=== PATIENT | female | born 1935 | race Caucasian/White ===

== ENCOUNTER 2022-01-25 18:59 | Inpatient (IN) | payer MEDICARE ==
--- NOTE | 2022-01-25 19:11 | ED ---
General Adult HPI - General Chief complaint: Fall Stated complaint: Rt shoulder pain Source: patient Mode of arrival: EMS Limitations: altered mental status - History of Present Illness Initial comments: Dictation was produced using [employer] dictation software. please excuse any grammatical, word or spelling errors. Chief Complaint: 86-year-old female presents to the emergency department for fall and right upper extremity injury History of Present Illness: Patient is an 78-year-old female presents via EMS. Patient had an unwitnessed fall at home. Patient was allegedly on the ground for approximately 30 minutes at most. Patient has history of dementia. She is alert and oriented 1 out of 4 at baseline. Patient has no known history of anticoagulation medication usage. According to EMS who received report from family patient is mentally at baseline. Patient complains of right upper extremity injury. She has pain at the right shoulder. She is placed in a sling by EMS. Patient denies any numbness and paresthesias to the arms or legs. She denies any chest pain or pelvis pain. The ROS documented in this emergency department record has been reviewed and confirmed by me. Those systems with pertinent positive or negative responses have been documented in the HPI. All other systems are other negative and/or noncontributory. PHYSICAL EXAM: General Impression: Alert and oriented x1/4, not in acute distress HEENT: Normocephalic atraumatic, extra-ocular movements intact, pupils equal and reactive to light bilaterally, mucous membranes moist. Cardiovascular: Heart regular rate and rhythm Chest: Able to complete full sentences, no retractions, no tachypnea Abdomen: abdomen soft, non-tender, non-distended, no organomegaly Musculoskeletal: Pulses present and equal in all extremities, no peripheral edema Right upper extremity: Gross deformity at the proximal upper extremity suspicious for a proximal humerus fracture Motor: no focal deficits noted Neurological: CN II-XII grossly intact, no focal motor or sensory deficits noted Skin: Intact with no visualized rashes Psych: Normal affect and mood ED course: 86-year-old female presents to the emergency department after fall. Follows unwitnessed. Patient has history of dementia and unable to provide detailed history of present illness. Shoulder x-ray shows right proximal humerus fracture superimposed on diffuse osseous demineralization which limits evaluation for nondisplaced Colles fracture. Patient placed in a right upper extremity coapt splint. Computed tomography scan of the head and C-spine shows no acute processes. Family at the bedside reports that patient lives in assisted living facility. More history was obtained from patient's daughter and granddaughter at the bedside. Patient usually ambulates with a cane that she operates with a right upper extremity. Family is not confident that patient would be able to tolerate being at home and follow up with the event her degree of debility and no good social structure at home. Case discussed with home either is of orthopedic surgery request the patient be admitted to medicine. Spoke with Mita Stein who is willing to accept patient's [facility] hospitalist group with orthopedic roy tommy on consult. EKG interpretation: Ventricular rate 82, sinus rhythm,. Interval 89, QS 94, QTC 409. No PA prolongation, no QTC prolongation, no ST or T-wave changes noted. No old EKG for comparison. Overall, this EKG is unremarkable for acute processes - Related Data Allergies Allergy/AdvReac Type Severity Reaction Status Date / Time No Known Allergies Allergy Verified 01/25/22 19:05 Review of Systems ROS Statement: Those systems with pertinent positive or pertinent negative responses have been documented in the HPI. ROS Other: All systems not noted in ROS Statement are negative. Past Medical History Past Medical History: Dementia History of Any Multi-Drug Resistant Organisms: None Reported Past Surgical History: Unable to Obtain Past Psychological History: No Psychological Hx Reported Smoking Status: Unknown if ever smoked Past Alcohol Use History: None Reported Past Drug Use History: None Reported General Exam Limitations: altered mental status Course Vital Signs 01/25/22 01/25/22 19:02 20:41 Temperature 98.3 F Pulse Rate 77 83 Respiratory 16 18 Rate Blood Pressure 146/73 169/84 O2 Sat by Pulse 97 96 Oximetry Procedures - Orthopedic Splinting/Casting Injury #1 Side: right Upper Extremity Injury Location: shoulder Upper Extremity Immobilizer: sling/shoulder immobilizer, synthetic pre-padded splint (coaptation splint) Medical Decision Making - Lab Data Result diagrams: 01/25/22 20:08 01/25/22 20:08 Lab Results 01/25/22 01/25/22 Range/Units 20:08 20:08 WBC 6.5 (3.8-10.6) k/uL RBC 5.32 (3.80-5.40) m/uL Hgb 13.4 (11.4-16.0) gm/dL Hct 43.2 (34.0-46.0) % MCV 81.2 (80.0-100.0) fL MCH 25.2 (25.0-35.0) pg MCHC 31.0 (31.0-37.0) g/dL RDW 14.8 (11.5-15.5) % Plt Count 224 (150-450) k/uL MPV 7.4 Neutrophils % 78 % Lymphocytes % 15 % Monocytes % 4 % Eosinophils % 1 % Basophils % 0 % Neutrophils # 5.1 (1.3-7.7) k/uL Lymphocytes # 1.0 (1.0-4.8) k/uL Monocytes # 0.3 (0-1.0) k/uL Eosinophils # 0.1 (0-0.7) k/uL Basophils # 0.0 (0-0.2) k/uL Hypochromasia Slight Sodium 135 L (137-145) mmol/L Potassium 4.7 (3.5-5.1) mmol/L Chloride 100 (98-107) mmol/L Carbon Dioxide 28 (22-30) mmol/L Anion Gap 7 mmol/L BUN 16 (7-17) mg/dL Creatinine 0.98 (0.52-1.04) mg/dL Est GFR (CKD-EPI)AfAm 60 (>60 ml/min/1.73 sqM) Est GFR (CKD-EPI)NonAf 52 (>60 ml/min/1.73 sqM) Glucose 287 H (74-99) mg/dL Calcium 9.4 (8.4-10.2) mg/dL Disposition Clinical Impression: Humeral fracture, Debility Disposition: ADMITTED IP TO THIS [facility] Condition: Fair Referrals: None,Stated [Primary Care Provider] - 1-2 days Decision Time: 20:43
[2022-01-25] MEDS ORDERED: MORPHINE SULFATE 4 MG/ML SYRINGE IV STA ×2 (19:47→20:36)
--- NOTE | 2022-01-25 19:51 | XR ---
EXAMINATION TYPE: XR humerus RT, XR shoulder complete RT DATE OF EXAM: 01/25/2022 7:30 PM INDICATION: Patient age:Female; 86 years old; Reason for study: fall; COMPARISON: None TECHNIQUE: The right humerus was examined in AP, internally rotated and axillary projections. Right shoulder was examined in AP lateral oblique and scapular Y FINDINGS: Diffuse osseous demineralization with deformity of the right femoral head. No definitive ot her fractures are identified. Visualized portions of the lungs are unremarkable. No evidence for frac ture at the elbow. IMPRESSION: Right proximal humerus fracture superimposed on diffuse osseous demineralization which limits evaluat ion for nondisplaced occult fractures.
[2022-01-25 20:14] LABS: Basophils % (A) 0 %; Eosinophils # (A) 0.1 k/uL (0-0.7); Eosinophils % (A) 1 %; HCT 43.2 % (34.0-46.0); HGB 13.4 gm/dL (11.4-16.0); Hypochromasia Slight; Lymphocytes % (A) 15 %; MCH 25.2 pg (25.0-35.0); MCV 81.2 fL (80.0-100.0); Mean Platelet Volume 7.4; Monocytes # (A) 0.3 k/uL (0-1.0); Monocytes % (A) 4 %; Neutrophils # (A) 5.1 k/uL (1.3-7.7); Neutrophils % (A) 78 %; Platelet Count 224 k/uL (150-450); RBC 5.32 m/uL (3.80-5.40); RDW 14.8 % (11.5-15.5); WBC 6.5 k/uL (3.8-10.6)
--- NOTE | 2022-01-25 20:23 | CT ---
EXAMINATION TYPE: CT brain cspine wo con CT DLP: 1160.9 mGycm, Automated exposure control for dose reduction was used. DATE OF EXAM: 01/25/2022 7:49 PM COMPARISON: None.. CLINICAL INDICATION:Female, 86 years old with history of fall; TECHNIQUE: Brain: Multiple axial CT images of the brain were obtained without IV contrast. Cspine: Axial CT images from the skull base to the inferior aspect of T2 we obtained without intraven ous contrast. Coronal and sagittal reformatted images were also reviewed. FINDINGS: Brain: Extra-axial spaces: No abnormal extra-axial fluid collections. Ventricular system: Dilatation in proportion to cerebral atrophy. Cerebral parenchyma: Cerebral atrophy. No acute intraparenchymal hemorrhage or mass effect. The shook -white junction is well differentiated. Scattered hypoattenuating areas are seen within the white mat ter. Cerebellum: Unremarkable. Mass effect: No evidence of midline shift. Intracranial vasculature: Atherosclerotic calcifications of the intracranial vessels. Soft tissues: Normal. Calvarium/osseous structures: No depressed skull fracture. Paranasal sinuses and mastoid air cells: Clear. Visualized orbits: Orbital contents are intact. Cervical spine: Fracture: None. Osseous structures: Multilevel degenerative disc disease changes with endplate spurring and disc oste ophyte complex's. Vertebral alignment: Within normal limits. Spinal canal/Neural Foramina: No evidence of significant spinal canal narrowing. Facet joint uncovert ebral joint arthropathy scattered throughout the cervical spine with varying degrees of neural forami nal stenosis. Neck soft tissues: Prevertebral soft tissues are within normal limits. Enlarged multinodular thyroid. Other: The airway is patent. The lung apices are clear. Moderate to severe atherosclerosis of the art erial vasculature including the carotid bifurcations. IMPRESSION: 1. No acute intracranial process. 2. Nonspecific white matter changes, likely secondary to chronic small vessel ischemic disease. 3. No evidence of cervical spine fracture. 4. Mild multilevel degenerative disc disease. 5. Enlarged multinodular thyroid.
[2022-01-25 20:30] LABS: Calcium 9.4 mg/dL (8.4-10.2); Potassium 4.7 mmol/L (3.5-5.1)
[2022-01-25] MEDS ORDERED: ONDANSETRON 4 MG/2 ML VIAL IVP PRN (20:38)
[2022-01-25] MEDS ORDERED: NALOXONE 0.4 MG/ML 1 ML VIAL IV PRN (20:38)
[2022-01-25] MEDS ORDERED: SODIUM CHLORIDE 0.9% 1,000 ML IV SCH (20:45)
[2022-01-25] MEDS: HYDROmorphone 0.5 MG/0.5 ML SYRINGE IVP PRN (22:57)
[2022-01-25] MEDS: QUEtiapine 50 MG TAB PO SCH (23:21)
[2022-01-26] MEDS: HYDROmorphone 0.5 MG/0.5 ML SYRINGE IVP PRN ×6 (01:05→21:17)
[2022-01-26] MEDS: amLODIPine 10 MG TAB PO SCH (08:55)
[2022-01-26] MEDS: QUEtiapine 50 MG TAB PO SCH ×2 (10:51→22:53)
[2022-01-26 11:48] LABS: Glucose,Whole Blood 308 mg/dL (75-99)
--- NOTE | 2022-01-26 12:01 | P.CNOR ---
History of Present Illness - [facility] Consult date: 01/26/22 Requesting physician: Amado Duran Consult reason: other (humeral shaft fracture) History of present illness: Patient is an 86-year-old female with a history of dementia presented to the emergency department yesterday status post fall at home. Patient was seen at bedside this morning with sling and splint on right upper extremity. Patient complains mostly of right shoulder pain. Majority of the history is difficult to obtain due to patient's medical history. Patient denies any previous orthopedic surgical history. Patient denies any chest pain, fever, shortness br eath, nausea, vomiting, change in vision, loss plus/bladder control. Patient denies any numbness/tingling in the upper extremities Past Medical History Past Medical History: Dementia Additional Past Medical History / Comment(s): stents History of Any Multi-Drug Resistant Organisms: None Reported Past Surgical History: Unable to Obtain Past Psychological History: No Psychological Hx Reported Smoking Status: Unknown if ever smoked Past Alcohol Use History: None Reported Past Drug Use History: None Reported Medications and Allergies Home Medications Medication Instructions Recorded Confirmed Type QUEtiapine [SEROquel] 50 mg PO BID 01/25/22 01/25/22 History amLODIPine [Norvasc] 10 mg PO DAILY 01/25/22 01/25/22 History Allergies Allergy/AdvReac Type Severity Reaction Status Date / Time No Known Allergies Allergy Verified 01/25/22 21:11 Physical Examination Inspection: Negative for any open fractures, significant nodules. Splint and sling are present on right upper extremity Sensation: Sensation is equal, symmetric, bilaterally intact throughout the upper and lower extremities Palpation: Moderate TTP in right upper extremity. NTTP throughout rest of exam ROM: Full ROM in bilateral lower extremities and LUE. Limited ROM RUE due to injury/splint Motor: 4/5 in all major motor groups in BLE and LUE. Microwave Engineer strength 4/5 in right hand. rest of motor exam right upper extremity not performed due to splint/injury Neurovascular status: Refill under 3 seconds in digits of extremities. Radial pulses intact, 2+ bilaterally. Special tests: Negative Homans bilaterally Results - Labs Labs: Abnormal Lab Results - Last 24 Hours (Table) 01/25/22 Range/Units 20:08 Sodium 135 L (137-145) mmol/L Glucose 287 H (74-99) mg/dL H & H 01/25/22 Range/Units 20:08 Hgb 13.4 (11.4-16.0) gm/dL Hct 43.2 (34.0-46.0) % Result Diagrams: 01/25/22 20:08 01/25/22 20:08 Assessment and Plan Assessment: 1. Right proximal humerus fracture 2. Dementia Plan: 1. Right proximal humerus fracture - patient stable at bedside this morning with splint and sling on right upper extremity. I did review findings x-ray with my attending, Dr. Carvalho. I did discuss with patient at bedside the findings from the x-ray of the humerus/shoulder. At this time we do not recommend any emergent orthopedic surgical intervention. We do recommend conservative treatment with the use of sling on right upper extremity as well as pain control. We will continue to follow patient while in hospital. Recommend patient to follow up in office in 2 weeks. 2. Appreciate medical management 3. Pain management - tylenol; dilaudid 4. DVT & GI ppx - Heparin 5. PT/OT - NWB RUE. Maintain in sling at all times 6. Encourage incentive spirometer use. 7. Appreciate consult Time with Patient: Less than 30
[2022-01-26] MEDS: INSULIN ASPART (NovoLOG) 100 UNIT/ML VIAL SQ SCH ×3 (12:19→22:53)
--- NOTE | 2022-01-26 15:47 | P.HPIM ---
History of Present Illness H&P Date: 01/26/22 Chief Complaint: Fall Patient is a 86-year-old female with a known history of hypertension, dementia was brought to the hospital status post fall and right upper extremity injury. Patient is a poor historian. As per her daughter patient went to the bathroom and was able to urinate. While coming back to her bed patient forgot to pull up her pants. Patient fell on the ground and stayed there before about 30 minutes. Patient was complaining of right hand pain and shoulder pain. Patient was brought to the hospital by EMS. sling was placed by EMS. Otherwise no recent illnesses. No nausea vomiting or abdominal pain or diarrhea. No complaints of chest pain or shortness of breath. Right humerus x-ray showed proximal humerus fracture superimposed on diffuse osseous demineralization which limits evaluation for nondisplaced occult fractures. CT head and cervical spine showed no acute intracranial process. Nonspecific white matter changes. Likely secondary to chronic small vessel ischemic disease. No evidence of cervical spine fracture. Multilevel degenerative disc disease. Enlarged multinodular thyroid. Laboratory data showed WBC 6.3 hemoglobin 13.4 and platelets 224, sodium 139 potassium 4.7 chloride 100 BUN 16 and creatinine 0.8 and blood sugar is 287 Review of Systems Complete review of systems could not be obtained from the patient except as per HPI Past Medical History Past Medical History: Dementia Additional Past Medical History / Comment(s): stents History of Any Multi-Drug Resistant Organisms: None Reported Past Surgical History: Unable to Obtain Past Psychological History: No Psychological Hx Reported Smoking Status: Unknown if ever smoked Past Alcohol Use History: None Reported Past Drug Use History: None Reported Medications and Allergies Home Medications Medication Instructions Recorded Confirmed Type QUEtiapine [SEROquel] 50 mg PO BID 01/25/22 01/25/22 History amLODIPine [Norvasc] 10 mg PO DAILY 01/25/22 01/25/22 History Allergies Allergy/AdvReac Type Severity Reaction Status Date / Time No Known Allergies Allergy Verified 01/25/22 21:11 Physical Exam Vitals: Vital Signs Temp Pulse Pulse Resp BP BP Pulse Ox 01/26/22 07:29 98.3 F 91 18 156/76 95 01/25/22 22:42 98.0 F 77 14 159/90 95 01/25/22 20:41 83 18 169/84 96 01/25/22 19:02 98.3 F 77 16 146/73 97 Intake and Output 01/25/22 01/26/22 01/26/22 22:59 06:59 14:59 Other: # Voids 1 Weight 52 kg PHYSICAL EXAMINATION: Patient is lying in the bed comfortably, no acute distress, awake alert and oriented 1.. Poor historian. HEENT: Normocephalic. Neck is supple. Pupils reactive. Nostrils clear. Oral cavity is moist. Neck reveals no JVD, carotid bruits, or thyromegaly. CHEST EXAMINATION: Trachea is central. Symmetrical expansion. Lung coyle clear to auscultation and percussion. CARDIAC: Normal S1, S2 with no gallops. No murmurs ABDOMEN: Soft. Bowel sounds normal. No organomegaly. No abdominal bruits. Extremities: reveal no edema. No clubbing or cyanosis Neurologically awake, alert, oriented 1 with well-coordinated movements. No cross focal deficits noted Skin: No rash or skin lesions. Psychiatric: Coperative. Could not be assessed completely Musculoskeletal: No joint swelling or deformity. Right upper extremity sling in place. Decreased range of motion.. Results CBC & Chem 7: 01/25/22 20:08 01/25/22 20:08 Labs: Abnormal Lab Results - Last 24 Hours (Table) 01/25/22 Range/Units 20:08 Sodium 135 L (137-145) mmol/L Glucose 287 H (74-99) mg/dL Thrombosis Risk Factor Assmnt - DVT/VTE Prophylaxis DVT/VTE Prophylaxis: Pharmacologic Prophylaxis ordered - Choose All That Apply Any of the Below Risk Factors Present?: No Other Risk Factors: Yes Each Risk Factor Represents 3 Points: Age 75 years or older Other congenital or acquired thrombophilia - If yes, enter type in comment: No Thrombosis Risk Factor Assessment Total Risk Factor Score: 3 Thrombosis Risk Factor Assessment Level: Moderate Risk Assessment and Plan Assessment: Right humerus fracture Status post mechanical fall Diffuse osteopenia Dementia Hypertension Hyperglycemia with no prior history of diabetes DVT prophylaxis Plan: Patient will be continued on pain management. Status post sling placement. Orthopedic surgery has seen the patient and recommended conservative treatment at this time. Follow-up in the office next 2 weeks. Repeat UA with nonweightbearing of the right upper extremity. Follow-up his B A1c level. Follow-up TSH, B12 and folate levels. Encourage ambulation and oral intake. Discussed with her daughter at bedside in detail. Follow up closely.
[2022-01-26 16:36] LABS: Glucose,Whole Blood 116 mg/dL (70-110)
[2022-01-26] MEDS ORDERED: SODIUM CHLORIDE 0.9% 500 ML 500 ML IV ONE (18:05)
[2022-01-26] MEDS: SODIUM CHLORIDE 0.9% 1,000 ML IV SCH (18:12)
[2022-01-26 20:26] LABS: Glucose,Whole Blood 201 mg/dL (70-110)
[2022-01-26] MEDS: HEPARIN SODIUM,PORCINE/PF 5,000 UNIT/0.5 ML SYRINGE SQ SCH (22:53)
[2022-01-27] MEDS: HYDROmorphone 0.5 MG/0.5 ML SYRINGE IVP PRN ×3 (00:27→11:45)
[2022-01-27 06:17] LABS: Basophils # (A) 0.1 k/uL (0-0.2); Basophils % (A) 1 %; Eosinophils % (A) 1 %; HCT 38.9 % (34.0-46.0); HGB 11.5 gm/dL (11.4-16.0); Hypochromasia Slight; Lymphocytes # (A) 1.4 k/uL (1.0-4.8); Lymphocytes % (A) 18 %; MCH 24.1 pg (25.0-35.0); MCHC 29.5 g/dL (31.0-37.0); MCV 81.7 fL (80.0-100.0); Mean Platelet Volume 8.4; Monocytes # (A) 0.5 k/uL (0-1.0); Monocytes % (A) 7 %; Neutrophils # (A) 5.7 k/uL (1.3-7.7); Neutrophils % (A) 73 %; Platelet Count 184 k/uL (150-450); RBC 4.75 m/uL (3.80-5.40); RDW 14.2 % (11.5-15.5); WBC 7.7 k/uL (3.8-10.6)
[2022-01-27 07:49] LABS: Glucose,Whole Blood 184 mg/dL (70-110)
[2022-01-27] MEDS: SODIUM CHLORIDE 0.9% 1,000 ML IV SCH ×2 (09:24→21:17)
[2022-01-27 09:59] LABS: African American GFR (CKD) 51.9 (60.0-200.0); BUN/Creat Ratio 19.18 Ratio (12.00-20.00); Blood Urea Nitrogen 21.1 mg/dL (9.0-27.0); Calcium 9.2 mg/dL (8.7-10.3); Carbon Dioxide 24.1 mmol/L (20.0-27.5); Chloride 103 mmol/L (96-109); Glucose 145 mg/dL (70-110); Non-African American GFR(CKD) 44.8 (60.0-200.0); Potassium 4.8 mmol/L (3.5-5.5); Sodium 139 mmol/L (135-145)
--- NOTE | 2022-01-27 10:01 | P.PN ---
Subjective Progress Note Date: 01/27/22 Principal diagnosis: Right proximal humerus fracture Patient seen at bedside this morning lying semirecumbent position was sling to right upper extremity. Patient mentions she is still having pain in the right shoulder at this time. Patient does not have any other complaints at this time. Patient denies chest pain, fever, shortness breath, nausea, vomiting, change in vision, loss of bowel/bladder control. Objective - Vital Signs Vital signs: Vital Signs Temp 97.6 F 01/27/22 07:16 Pulse 85 01/27/22 07:16 Resp 16 01/27/22 07:16 BP 161/74 01/27/22 07:16 Pulse Ox 95 01/27/22 07:16 FiO2 Intake & Output 01/26/22 01/27/22 01/27/22 18:59 06:59 18:59 Output Total 300 Balance -300 Output: Urine 300 Other: Voiding Method External Catheter External Catheter # Voids 1 - Exam Inspection: Negative for any open fractures, significant nodules. Splint and sling are present on right upper extremity Sensation: Sensation is equal, symmetric, bilaterally intact throughout the upper and lower extremities Palpation: Moderate TTP in right upper extremity. NTTP throughout rest of exam ROM: Full ROM in bilateral lower extremities and LUE. Limited ROM RUE due to injury/splint Motor: 4/5 in all major motor groups in BLE and LUE. Driveway Sealer strength 4/5 in right hand. rest of motor exam right upper extremity not performed due to splint/injury Neurovascular status: Refill under 3 seconds in digits of extremities. Radial pulses intact, 2+ bilaterally. Special tests: Negative Homans bilaterally - Labs CBC & Chem 7: 01/27/22 04:07 01/25/22 20:08 Labs: Abnormal Lab Results - Last 24 Hours (Table) 01/26/22 01/26/22 01/26/22 Range/Units 11:46 16:30 20:23 MCH (25.0-35.0) pg MCHC (31.0-37.0) g/dL POC Glucose (mg/dL) 308 H 116 H 201 H (75-99) mg/dL Hemoglobin A1c (0.0-6.0) % 01/27/22 01/27/22 01/27/22 Range/Units 04:07 04:07 07:46 MCH 24.1 L (25.0-35.0) pg MCHC 29.5 L (31.0-37.0) g/dL POC Glucose (mg/dL) 184 H (75-99) mg/dL Hemoglobin A1c 8.9 H (0.0-6.0) % Assessment and Plan Assessment: 1. Right proximal humerus fracture 2. Dementia Plan: 1. Right proximal humerus fracture - patient stable at bedside this morning with splint and sling on right upper extremity. I did review findings x-ray with my attending, Dr. Carvalho. I did discuss with patient at bedside the findings from the x-ray of the humerus/shoulder. At this time we do not recommend any emergent orthopedic surgical intervention. We do recommend conservative treatment with the use of sling on right upper extremity as well as pain control. Patient is stable from an orthopedic standpoint for discharge to rehab. At this time orthopedics is signing off. Please do not hesitate to contact us for any further questions. Recommend patient to follow up in office in 2 weeks. 2. Appreciate medical management 3. Pain management - tylenol; dilaudid 4. DVT & GI ppx - Heparin 5. PT/OT - NWB RUE. Maintain in sling at all times 6. Encourage incentive spirometer use. 7. Appreciate consult Time with Patient: Less than 30
[2022-01-27] MEDS: INSULIN ASPART (NovoLOG) 100 UNIT/ML VIAL SQ SCH ×4 (10:02→21:13)
[2022-01-27] MEDS: amLODIPine 10 MG TAB PO SCH (10:04)
[2022-01-27] MEDS: QUEtiapine 50 MG TAB PO SCH ×3 (10:04→21:54)
[2022-01-27] MEDS: HEPARIN SODIUM,PORCINE/PF 5,000 UNIT/0.5 ML SYRINGE SQ SCH ×2 (10:04→21:14)
[2022-01-27 11:29] LABS: Glucose,Whole Blood 183 mg/dL (70-110)
[2022-01-27] MEDS: HYDROcodone/APAP 5-325MG 1 EACH TAB PO PRN ×3 (12:56→21:54)
[2022-01-27 16:29] LABS: Glucose,Whole Blood 169 mg/dL (70-110)
[2022-01-27 20:12] LABS: Glucose,Whole Blood 168 mg/dL (70-110)
[2022-01-28] MEDS: HYDROcodone/APAP 5-325MG 1 EACH TAB PO PRN ×4 (03:36→17:02)
[2022-01-28 07:33] LABS: Glucose,Whole Blood 112 mg/dL (70-110)
[2022-01-28] MEDS: INSULIN ASPART (NovoLOG) 100 UNIT/ML VIAL SQ SCH ×4 (08:02→21:08)
[2022-01-28] MEDS: QUEtiapine 50 MG TAB PO SCH ×2 (08:33→20:21)
[2022-01-28] MEDS: SODIUM CHLORIDE 0.9% 1,000 ML IV SCH (08:33)
[2022-01-28] MEDS: amLODIPine 10 MG TAB PO SCH (08:33)
[2022-01-28] MEDS: HEPARIN SODIUM,PORCINE/PF 5,000 UNIT/0.5 ML SYRINGE SQ SCH ×2 (08:33→20:21)
--- NOTE | 2022-01-28 11:02 | P.PN ---
Subjective Progress Note Date: 01/27/22 Patient is a 86-year-old female with a known history of hypertension, dementia was brought to the hospital status post fall and right upper extremity injury. Patient is a poor historian. As per her daughter patient went to the bathroom and was able to urinate. While coming back to her bed patient forgot to pull up her pants. Patient fell on the ground and stayed there before about 30 minutes. Patient was complaining of right hand pain and shoulder pain. Patient was brought to the hospital by EMS. sling was placed by EMS. Otherwise no recent illnesses. No nausea vomiting or abdominal pain or diarrhea. No complaints of chest pain or shortness of breath. Right humerus x-ray showed proximal humerus fracture superimposed on diffuse osseous demineralization which limits evaluation for nondisplaced occult fractures. CT head and cervical spine showed no acute intracranial process. Nonspecific white matter changes. Likely secondary to chronic small vessel ischemic disease. No evidence of cervical spine fracture. Multilevel degenerative disc disease. Enlarged multinodular thyroid. Laboratory data showed WBC 6.3 hemoglobin 13.4 and platelets 224, sodium 139 potassium 4.7 chloride 100 BUN 16 and creatinine 0.8 and blood sugar is 287 01/27/2022 Patient is currently resting in June. Awake alert. Does have underlying dementia. Denied any complaints of right shoulder pain around pain. No fever no chills. No chest pain or shortness of breath. No headache or dizziness or lightheadedness. Orthopedic surgery once outpatient follow-up. No surgical intervention at this time. Patient does have elevated A1c level 8.9. Current medications reviewed. Objective - Vital Signs Vital signs: Vital Signs Temp 97.6 F 01/28/22 08:00 Pulse 94 01/28/22 08:00 Resp 17 01/28/22 08:00 BP 156/75 01/28/22 08:00 Pulse Ox 97 01/28/22 08:00 FiO2 Intake & Output 01/27/22 01/28/22 01/28/22 18:59 06:59 18:59 Intake Total 300 Output Total 650 Balance 300 -650 Intake: Oral 300 Output: Urine 650 Other: Voiding Method External Catheter External Catheter External Catheter - Exam PHYSICAL EXAMINATION: Patient is lying in the bed comfortably, no acute distress, awake alert and oriented.. HEENT: Normocephalic. Neck is supple. Pupils reactive. Nostrils clear. Oral cavity is moist. Neck reveals no JVD, carotid bruits, or thyromegaly. CHEST EXAMINATION: Trachea is central. Symmetrical expansion. Lung coyle clear to auscultation and percussion. CARDIAC: Normal S1, S2 with no gallops. No murmurs ABDOMEN: Soft. Bowel sounds normal. No organomegaly. No abdominal bruits. Extremities: reveal no edema. No clubbing or cyanosis Neurologically awake, alert, oriented x2-3. Dementia. with well-coordinated movements. No focal deficits noted Skin: No rash or skin lesions. Psychiatric: Coperative. Nonsuicidal Musculoskeletal: No joint swelling or deformity. Normal range of motion. - Labs CBC & Chem 7: 01/27/22 04:07 01/27/22 04:07 Labs: Abnormal Lab Results - Last 24 Hours (Table) 01/27/22 01/27/22 01/27/22 Range/Units 11:27 16:27 20:10 POC Glucose (mg/dL) 183 H 169 H 168 H (70-110) mg/dL 01/28/22 Range/Units 07:32 POC Glucose (mg/dL) 112 H (70-110) mg/dL Assessment and Plan Assessment: Right humerus fracture Status post mechanical fall New onset diabetes type 2. A1c 8.9. Diffuse osteopenia Dementia Hypertension Hyperglycemia with no prior history of diabetes DVT prophylaxis Plan: Patient will be continued on pain management. Status post sling placement. Orthopedic surgery has seen the patient and recommended conservative treatment at this time. Follow-up in the office next 2 weeks. Repeat UA with nonweightbearing of the right upper extremity. Elevated B A1c level. Patient will be started on insulin sliding scale. Follow-up TSH, B12 within normal limits. Pending folate levels. Encourage ambulation and oral intake. Discussed with her daughter at bedside in detail. Follow up closely. Time with Patient: Greater than 30
[2022-01-28 11:33] LABS: Glucose,Whole Blood 226 mg/dL (70-110)
[2022-01-28 16:47] LABS: Glucose,Whole Blood 176 mg/dL (70-110)
[2022-01-28 21:06] LABS: Glucose,Whole Blood 154 mg/dL (70-110)
[2022-01-28] MEDS: INSULIN DETEMIR (LEVEMIR) 100 UNIT/ML SYR SQ SCH (21:09)
[2022-01-29] MEDS: HYDROcodone/APAP 5-325MG 1 EACH TAB PO PRN ×5 (00:31→21:11)
[2022-01-29] MEDS: SODIUM CHLORIDE 0.9% 1,000 ML IV SCH ×2 (01:50→14:01)
[2022-01-29 07:25] LABS: Glucose,Whole Blood 87 mg/dL (70-110)
[2022-01-29] MEDS: INSULIN ASPART (NovoLOG) 100 UNIT/ML VIAL SQ SCH ×4 (07:28→22:08)
[2022-01-29] MEDS: QUEtiapine 50 MG TAB PO SCH ×2 (07:33→22:09)
[2022-01-29] MEDS: HEPARIN SODIUM,PORCINE/PF 5,000 UNIT/0.5 ML SYRINGE SQ SCH ×2 (07:33→22:09)
[2022-01-29] MEDS: amLODIPine 10 MG TAB PO SCH (07:33)
[2022-01-29 11:04] LABS: Glucose,Whole Blood 159 mg/dL (70-110)
--- NOTE | 2022-01-29 11:18 | P.PN ---
Subjective Progress Note Date: 01/28/22 Patient is a 86-year-old female with a known history of hypertension, dementia was brought to the hospital status post fall and right upper extremity injury. Patient is a poor historian. As per her daughter patient went to the bathroom and was able to urinate. While coming back to her bed patient forgot to pull up her pants. Patient fell on the ground and stayed there before about 30 minutes. Patient was complaining of right hand pain and shoulder pain. Patient was brought to the hospital by EMS. sling was placed by EMS. Otherwise no recent illnesses. No nausea vomiting or abdominal pain or diarrhea. No complaints of chest pain or shortness of breath. Right humerus x-ray showed proximal humerus fracture superimposed on diffuse osseous demineralization which limits evaluation for nondisplaced occult fractures. CT head and cervical spine showed no acute intracranial process. Nonspecific white matter changes. Likely secondary to chronic small vessel ischemic disease. No evidence of cervical spine fracture. Multilevel degenerative disc disease. Enlarged multinodular thyroid. Laboratory data showed WBC 6.3 hemoglobin 13.4 and platelets 224, sodium 139 potassium 4.7 chloride 100 BUN 16 and creatinine 0.8 and blood sugar is 287 01/27/2022 Patient is currently resting in June. Awake alert. Does have underlying dementia. Denied any complaints of right shoulder pain around pain. No fever no chills. No chest pain or shortness of breath. No headache or dizziness or lightheadedness. Orthopedic surgery once outpatient follow-up. No surgical intervention at this time. Patient does have elevated A1c level 8.9. 01/28/2022 patient is currently sitting in a recliner. Awake alert and oriented. Feels weak. No complaints of right shoulder pain. Blood sugar is be tter controlled. Patient will be started on Levemir 8 units at bedtime along with sliding scale. Encourage oral intake. No fever no chills. No cough or sputum production. No headache or dizziness or lightheadedness. Awaiting placement to extended-care facility. Current medications reviewed. Objective - Vital Signs Vital signs: Vital Signs Temp 97.3 F L 01/28/22 14:00 Pulse 92 01/28/22 14:00 Resp 18 01/28/22 14:00 BP 119/72 01/28/22 14:00 Pulse Ox 96 01/28/22 14:00 FiO2 Intake & Output 01/27/22 01/28/22 01/28/22 18:59 06:59 18:59 Intake Total 300 Output Total 650 Balance 300 -650 Intake: Oral 300 Output: Urine 650 Other: Voiding Method External Catheter External Catheter External Catheter - Exam PHYSICAL EXAMINATION: Patient is lying in the bed comfortably, no acute distress, awake alert and oriented.. HEENT: Normocephalic. Neck is supple. Pupils reactive. Nostrils clear. Oral cavity is moist. Neck reveals no JVD, carotid bruits, or thyromegaly. CHEST EXAMINATION: Trachea is central. Symmetrical expansion. Lung coyle clear to auscultation and percussion. CARDIAC: Normal S1, S2 with no gallops. No murmurs ABDOMEN: Soft. Bowel sounds normal. No organomegaly. No abdominal bruits. Extremities: reveal no edema. No clubbing or cyanosis Neurologically awake, alert, oriented x2-3. Dementia. with well-coordinated movements. No focal deficits noted Skin: No rash or skin lesions. Psychiatric: Coperative. Nonsuicidal Musculoskeletal: No joint swelling or deformity. Normal range of motion. - Labs CBC & Chem 7: 01/27/22 04:07 01/27/22 04:07 Labs: Abnormal Lab Results - Last 24 Hours (Table) 01/27/22 01/27/22 01/28/22 Range/Units 16:27 20:10 07:32 POC Glucose (mg/dL) 169 H 168 H 112 H (70-110) mg/dL 01/28/22 Range/Units 11:31 POC Glucose (mg/dL) 226 H (70-110) mg/dL Assessment and Plan Assessment: Right humerus fracture Status post mechanical fall New onset diabetes type 2. A1c 8.9. Diffuse osteopenia Dementia Hypertension Hyperglycemia with no prior history of diabetes DVT prophylaxis Plan: Patient will be continued on pain management. Status post sling placement. Orthopedic surgery has seen the patient and recommended conservative treatment at this time. Follow-up in the office next 2 weeks. Repeat UA with nonweightb earing of the right upper extremity. Elevated B A1c level. Patient will be started on insulin sliding scale. Added long-acting insulin. Follow-up TSH, B12 within normal limits. Pending folate levels. Encourage ambulation and oral intake. Discussed with her daughter at bedside in detail. Follow up closely. Time with Patient: Greater than 30
[2022-01-29] MEDS ORDERED: CYANOCOBALAMIN 1,000 MCG/ML 1 ML VIAL IM ONE (12:00)
[2022-01-29 15:45] LABS: Glucose,Whole Blood 192 mg/dL (70-110)
[2022-01-29 20:46] LABS: Glucose,Whole Blood 106 mg/dL (70-110)
[2022-01-29] MEDS: INSULIN DETEMIR (LEVEMIR) 100 UNIT/ML SYR SQ SCH (22:09)
[2022-01-30] MEDS: SODIUM CHLORIDE 0.9% 1,000 ML IV SCH ×2 (04:00→17:24)
[2022-01-30] MEDS: HYDROcodone/APAP 5-325MG 1 EACH TAB PO PRN ×3 (05:50→14:23)
[2022-01-30 07:07] LABS: Glucose,Whole Blood 125 mg/dL (70-110)
[2022-01-30] MEDS: INSULIN ASPART (NovoLOG) 100 UNIT/ML VIAL SQ SCH ×4 (08:01→22:05)
[2022-01-30] MEDS: amLODIPine 10 MG TAB PO SCH (08:47)
[2022-01-30] MEDS: HEPARIN SODIUM,PORCINE/PF 5,000 UNIT/0.5 ML SYRINGE SQ SCH ×2 (08:47→22:05)
[2022-01-30] MEDS: QUEtiapine 50 MG TAB PO SCH ×2 (08:47→22:05)
[2022-01-30 09:40] LABS: Basophils # (A) 0.01 X 10*3/uL (0.00-0.10); Basophils % (A) 0.2 %; Eosinophils # (A) 0.22 X 10*3/uL (0.04-0.35); Eosinophils % (A) 3.9 %; HCT 38.6 % (37.2-46.3); HGB 11.7 g/dL (12.0-15.0); Immature Grans, Automated 0.2 %; Lymphocytes # (A) 1.06 X 10*3/uL (0.90-5.00); Lymphocytes % (A) 18.9 %; MCH 23.8 pg (27.0-32.0); MCHC 30.3 g/dL (32.0-37.0); MCV 78.5 fL (80.0-97.0); Mean Platelet Volume 10.9 fL (9.5-12.2); Monocytes # (A) 0.53 X 10*3/uL (0.20-1.00); Monocytes % (A) 9.4 %; NRBC Per 100 WBC 0 /100 WBCS (0.0-0.0); Neutrophils # (A) 3.78 X 10*3/uL (1.80-7.70); Neutrophils % (A) 67.4 %; Platelet Count 257 X 10*3/uL (140-440); RBC 4.92 X 10*6/uL (4.10-5.20); RDW 14.1 % (11.5-14.5); WBC 5.61 X 10*3/uL (4.50-10.00)
[2022-01-30 10:32] LABS: African American GFR (CKD) 80.3 (60.0-200.0); BUN/Creat Ratio 20.47 Ratio (12.00-20.00); Blood Urea Nitrogen 15.7 mg/dL (9.0-27.0); Calcium 9.3 mg/dL (8.7-10.3); Carbon Dioxide 23.6 mmol/L (20.0-27.5); Non-African American GFR(CKD) 69.3 (60.0-200.0); Potassium 3.8 mmol/L (3.5-5.5)
[2022-01-30 11:29] LABS: Glucose,Whole Blood 229 mg/dL (70-110)
[2022-01-30] MEDS: HYDROmorphone 0.5 MG/0.5 ML SYRINGE IVP PRN ×2 (15:53→23:10)
[2022-01-30 16:49] LABS: Glucose,Whole Blood 172 mg/dL (70-110)
[2022-01-30 21:44] LABS: Glucose,Whole Blood 169 mg/dL (70-110)
[2022-01-30] MEDS: INSULIN DETEMIR (LEVEMIR) 100 UNIT/ML SYR SQ SCH (22:05)
--- NOTE | 2022-01-31 01:54 | P.PN ---
Subjective Progress Note Date: 01/29/22 Patient is a 86-year-old female with a known history of hypertension, dementia was brought to the hospital status post fall and right upper extremity injury. Patient is a poor historian. As per her daughter patient went to the bathroom and was able to urinate. While coming back to her bed patient forgot to pull up her pants. Patient fell on the ground and stayed there before about 30 minutes. Patient was complaining of right hand pain and shoulder pain. Patient was brought to the hospital by EMS. sling was placed by EMS. Otherwise no recent illnesses. No nausea vomiting or abdominal pain or diarrhea. No complaints of chest pain or shortness of breath. Right humerus x-ray showed proximal humerus fracture superimposed on diffuse osseous demineralization which limits evaluation for nondisplaced occult fractures. CT head and cervical spine showed no acute intracranial process. Nonspecific white matter changes. Likely secondary to chronic small vessel ischemic disease. No evidence of cervical spine fracture. Multilevel degenerative disc disease. Enlarged multinodular thyroid. Laboratory data showed WBC 6.3 hemoglobin 13.4 and platelets 224, sodium 139 potassium 4.7 chloride 100 BUN 16 and creatinine 0.8 and blood sugar is 287 01/27/2022 Patient is currently resting in June. Awake alert. Does have underlying dementia. Denied any complaints of right shoulder pain around pain. No fever no chills. No chest pain or shortness of breath. No headache or dizziness or lightheadedness. Orthopedic surgery once outpatient follow-up. No surgical intervention at this time. Patient does have elevated A1c level 8.9. 01/28/2022 patient is currently sitting in a recliner. Awake alert and oriented. Feels weak. No complaints of right shoulder pain. Blood sugar is be tter controlled. Patient will be started on Levemir 8 units at bedtime along with sliding scale. Encourage oral intake. No fever no chills. No cough or sputum production. No headache or dizziness or lightheadedness. Awaiting placement to extended-care facility. 01/29/2022 Patient is lying in the bed. Awake alert but confused and getting out of bed. No complaints of chest pain. No nausea or vomiting. Right shoulder pain is controlled. Denies any nausea or vomiting. Tolerating oral diet. No headache or dizziness or lightheadedness. Patient is on insulin sliding scale and Levemir. Blood sugar is better controlled. Laboratory data reviewed.. Current medications reviewed. Objective - Vital Signs Vital signs: Vital Signs Temp 98.4 F 01/29/22 13:57 Pulse 94 01/29/22 13:57 Resp 20 01/29/22 13:57 BP 106/74 01/29/22 13:57 Pulse Ox 94 L 01/29/22 13:57 FiO2 Intake & Output 01/28/22 01/29/22 01/29/22 18:59 06:59 18:59 Output Total 400 Balance -400 Output: Urine 400 Other: Voiding Method External Catheter External Catheter External Catheter # Voids 2 - Exam PHYSICAL EXAMINATION: Patient is lying in the bed comfortably, no acute distress, awake alert and oriented.. HEENT: Normocephalic. Neck is supple. Pupils reactive. Nostrils clear. Oral cavity is moist. Neck reveals no JVD, carotid bruits, or thyromegaly. CHEST EXAMINATION: Trachea is central. Symmetrical expansion. Lung coyle clear to auscultation and percussion. CARDIAC: Normal S1, S2 with no gallops. No murmurs ABDOMEN: Soft. Bowel sounds normal. No organomegaly. No abdominal bruits. Extremities: reveal no edema. No clubbing or cyanosis Neurologically awake, alert, oriented x2-3. Dementia. with well-coordinated movements. No focal deficits noted Skin: No rash or skin lesions. Psychiatric: Coperative. Nonsuicidal Musculoskeletal: No joint swelling or deformity. Normal range of motion. - Labs CBC & Chem 7: 01/30/22 06:53 01/30/22 06:48 Labs: Abnormal Lab Results - Last 24 Hours (Table) 01/28/22 01/28/22 01/29/22 Range/Units 16:45 21:05 11:02 POC Glucose (mg/dL) 176 H 154 H 159 H (70-110) mg/dL 01/29/22 Range/Units 15:43 POC Glucose (mg/dL) 192 H (70-110) mg/dL Assessment and Plan Assessment: Right humerus fracture Status post mechanical fall New onset diabetes type 2. A1c 8.9. Diffuse osteopenia Dementia Hypertension Hyperglycemia with no prior history of diabetes DVT prophylaxis Plan: Patient will be continued on pain management. Status post sling placement. Orthopedic surgery has seen the patient and recommended conservative treatment at this time. Follow-up in the office next 2 weeks. nonweightbearing of the right upper extremity. Elevated B A1c level. Patient will be started on insulin sliding scale. Added long-acting insulin. Follow-up TSH, B12 within normal limits. WNL folate levels. Encourage ambulation and oral intake. Follow up closely.
--- NOTE | 2022-01-31 01:55 | P.PN ---
Subjective Progress Note Date: 01/30/22 Patient is a 86-year-old female with a known history of hypertension, dementia was brought to the hospital status post fall and right upper extremity injury. Patient is a poor historian. As per her daughter patient went to the bathroom and was able to urinate. While coming back to her bed patient forgot to pull up her pants. Patient fell on the ground and stayed there before about 30 minutes. Patient was complaining of right hand pain and shoulder pain. Patient was brought to the hospital by EMS. sling was placed by EMS. Otherwise no recent illnesses. No nausea vomiting or abdominal pain or diarrhea. No complaints of chest pain or shortness of breath. Right humerus x-ray showed proximal humerus fracture superimposed on diffuse osseous demineralization which limits evaluation for nondisplaced occult fractures. CT head and cervical spine showed no acute intracranial process. Nonspecific white matter changes. Likely secondary to chronic small vessel ischemic disease. No evidence of cervical spine fracture. Multilevel degenerative disc disease. Enlarged multinodular thyroid. Laboratory data showed WBC 6.3 hemoglobin 13.4 and platelets 224, sodium 139 potassium 4.7 chloride 100 BUN 16 and creatinine 0.8 and blood sugar is 287 01/27/2022 Patient is currently resting in June. Awake alert. Does have underlying dementia. Denied any complaints of right shoulder pain around pain. No fever no chills. No chest pain or shortness of breath. No headache or dizziness or lightheadedness. Orthopedic surgery once outpatient follow-up. No surgical intervention at this time. Patient does have elevated A1c level 8.9. 01/28/2022 patient is currently sitting in a recliner. Awake alert and oriented. Feels weak. No complaints of right shoulder pain. Blood sugar is be tter controlled. Patient will be started on Levemir 8 units at bedtime along with sliding scale. Encourage oral intake. No fever no chills. No cough or sputum production. No headache or dizziness or lightheadedness. Awaiting placement to extended-care facility. 01/29/2022 Patient is lying in the bed. Awake alert but confused and getting out of bed. No complaints of chest pain. No nausea or vomiting. Right shoulder pain is controlled. Denies any nausea or vomiting. Tolerating oral diet. No headache or dizziness or lightheadedness. Patient is on insulin sliding scale and Levemir. Blood sugar is better controlled. Laboratory data reviewed.. 01/30/2022 Patient is resting in bed. Awake alert but confused. Seems to be more calm today. Denied any right shoulder pain. No cough or production. No nausea or vomiting. Tolerating minimal oral intake. Continued right shoulder sling. No other acute overnight issues. Anticipate discharge to rehab in next 24 hours. Follow-up with thoracic surgery in the next 2 weeks in the office. Current medications reviewed. Objective - Vital Signs Vital signs: Vital Signs Temp 97.5 F L 01/30/22 14:00 Pulse 83 01/30/22 14:00 Resp 17 01/30/22 14:00 BP 126/73 01/30/22 14:00 Pulse Ox 96 01/30/22 14:00 FiO2 Intake & Output 01/30/22 01/30/22 01/31/22 06:59 18:59 06:59 Output Total 350 Balance -350 Output: Urine 350 Other: Voiding Method External Catheter - Exam PHYSICAL EXAMINATION: Patient is lying in the bed comfortably, no acute distress, awake alert and oriented.. HEENT: Normocephalic. Neck is supple. Pupils reactive. Nostrils clear. Oral cavity is moist. Neck reveals no JVD, carotid bruits, or thyromegaly. CHEST EXAMINATION: Trachea is central. Symmetrical expansion. Lung coyle clear to auscultation and percussion. CARDIAC: Normal S1, S2 with no gallops. No murmurs ABDOMEN: Soft. Bowel sounds normal. No organomegaly. No abdominal bruits. Extremities: reveal no edema. No clubbing or cyanosis Neurologically awake, alert, oriented x2-3. Dementia. with well-coordinated movements. No focal deficits noted Skin: No rash or skin lesions. Psychiatric: Coperative. Nonsuicidal Musculoskeletal: No joint swelling or deformity. Normal range of motion. - Labs CBC & Chem 7: 01/30/22 06:53 01/30/22 06:48 Labs: Abnormal Lab Results - Last 24 Hours (Table) 01/30/22 01/30/22 01/30/22 Range/Units 06:48 06:53 07:06 Hgb 11.7 L (12.0-15.0) g/dL MCV 78.5 L (80.0-97.0) fL MCH 23.8 L (27.0-32.0) pg MCHC 30.3 L (32.0-37.0) g/dL BUN/Creatinine Ratio 20.47 H (12.00-20.00) Ratio Glucose 140 H (70-110) mg/dL POC Glucose (mg/dL) 125 H (70-110) mg/dL 01/30/22 01/30/22 01/30/22 Range/Units 11:27 16:48 21:43 Hgb (12.0-15.0) g/dL MCV (80.0-97.0) fL MCH (27.0-32.0) pg MCHC (32.0-37.0) g/dL BUN/Creatinine Ratio (12.00-20.00) Ratio Glucose (70-110) mg/dL POC Glucose (mg/dL) 229 H 172 H 169 H (70-110) mg/dL Assessment and Plan Assessment: Right humerus fracture Status post mechanical fall New onset diabetes type 2. A1c 8.9. Diffuse osteopenia Dementia Hypertension Hyperglycemia with no prior history of diabetes DVT prophylaxis Plan: Patient will be continued on pain management. Status post sling placement. Orthopedic surgery has seen the patient and recommended conservative treatment at this time. Follow-up in the office next 2 weeks. nonweightbearing of the right upper extremity. Elevated B A1c level. Patient will be started on insulin sliding scale. Added long-acting insulin. Follow-up TSH, B12 within normal limits. WNL folate levels. Encourage ambulation and oral intake. Follow up closely.
[2022-01-31] MEDS: HYDROcodone/APAP 5-325MG 1 EACH TAB PO PRN ×3 (03:24→15:53)
[2022-01-31] MEDS: SODIUM CHLORIDE 0.9% 1,000 ML IV SCH (06:40)
[2022-01-31 07:01] LABS: Glucose,Whole Blood 55 mg/dL (70-110)
[2022-01-31] MEDS: INSULIN ASPART (NovoLOG) 100 UNIT/ML VIAL SQ SCH ×2 (07:16→12:06)
[2022-01-31 07:26] LABS: Glucose,Whole Blood 92 mg/dL (70-110)
[2022-01-31 08:33] LABS: Basophils % (A) 0 %; Eosinophils # (A) 0.2 k/uL (0-0.7); Eosinophils % (A) 3 %; HCT 39.5 % (34.0-46.0); HGB 12.3 gm/dL (11.4-16.0); Hypochromasia Moderate; Lymphocytes # (A) 1.3 k/uL (1.0-4.8); Lymphocytes % (A) 22 %; MCH 25.6 pg (25.0-35.0); MCHC 31.2 g/dL (31.0-37.0); Mean Platelet Volume 7.1; Monocytes # (A) 0.3 k/uL (0-1.0); Monocytes % (A) 6 %; Neutrophils # (A) 3.8 k/uL (1.3-7.7); Neutrophils % (A) 67 %; Platelet Count 256 k/uL (150-450); RBC 4.81 m/uL (3.80-5.40); RDW 14.7 % (11.5-15.5); WBC 5.6 k/uL (3.8-10.6)
[2022-01-31] MEDS: QUEtiapine 50 MG TAB PO SCH (09:23)
[2022-01-31] MEDS: HEPARIN SODIUM,PORCINE/PF 5,000 UNIT/0.5 ML SYRINGE SQ SCH (09:23)
[2022-01-31] MEDS: amLODIPine 10 MG TAB PO SCH (09:23)
[2022-01-31 11:51] LABS: Glucose,Whole Blood 102 mg/dL (70-110)
--- NOTE | 2022-01-31 14:10 | P.DS ---
Providers Date of admission: 01/25/22 20:38 Expected date of discharge: 01/31/22 Attending physician: Viridiana Jiménez Consults: 01/25/22 20:38 Consult Physician Routine Consulting Provider: Jose Antonio Carvalho Consult Reason/Comments: humeral shaft fracture Do you want consulting provider notified?: Already Contacted Primary care physician: Bia Traylor Hospital Course: Final diagnosis Right humerus fracture Status post mechanical fall New onset diabetes type 2. A1c 8.9. Diffuse osteopenia Dementia Hypertension Hyperglycemia with no prior history of diabetes DVT prophylaxis Full code Discharge disposition Patient is being discharged in a stable condition with guarded prognosis to [facility] for continued PT/OT therapy. Patient will follow-up with Dr. Traylor in the outpatient setting upon discharge. Patient is to follow up with orthopedics in 1-2 weeks. Total time taken is greater than 35 minutes. Hospital course This is an 86-year-old female who was recently admitted status post fall and having right upper extremity pain with injury and was found to have proximal humerus fracture superimposed on diffuse osseous demineralization. Orthopedics evaluated the patient recommending conservative management and continue with the sling and will be going to [facility] for continued physical therapy and will follow-up with orthopedics in the outpatient setting. Patient also instructed to follow-up with primary care provider on discharge. She is to continue with scheduled Tylenol and may use as needed [place] is having severe pain and limit the use of narcotics given patient's age. Recommend to continue monitoring Accu-Cheks before meals and at bedtime and use sliding scale as needed for elevated blood sugars. Currently no reports of chest pain, shortness of breath, or palpitations. Patient is afebrile. No reports of nausea or vomiting and patient is tolerating diet. Patient will be [facility] on and [place] today. Recommend heparin subcutaneous every 12 for DVT prophylaxis. Guarded prognosis. On exam vital signs are stable. Cardio S1, S2 are muffled. Respiratory system shows diminished breath sounds at the bases with no wheezing or rhonchi noted. Abdomen is soft and nontender. Nervous system shows diffuse weakness. Please refer to medication reconciliation sheet for a list of medications. The impression and plan of care has been dictated by Olamide Whitaker, Nurse Practitioner as directed. Dr. Tino MD I have performed a history and examination and MDM of this patient, discussed the same with the dictator, and agree with the dictator's assessment and plan as written ,documented as a scribe. Based on total visit time, I have performed more than 50% of the visit. Patient Condition at Discharge: Fair Plan - Discharge Summary Discharge Rx Participant: Yes New Discharge Prescriptions: New Acetaminophen Tab [Tylenol Tab] 500 mg PO Q6H #30 tablet HYDROcodone/APAP 5-325MG [[place] 5-325] 1 each PO Q8H PRN #3 tab PRN Reason: Pain Continue amLODIPine [Norvasc] 10 mg PO DAILY QUEtiapine [SEROquel] 50 mg PO BID Discharge Medication List QUEtiapine [SEROquel] 50 mg PO BID 01/25/22 [History] amLODIPine [Norvasc] 10 mg PO DAILY 01/25/22 [History] Acetaminophen Tab [Tylenol Tab] 500 mg PO Q6H #30 tablet 01/31/22 [Rx] HYDROcodone/APAP 5-325MG [[place] 5-325] 1 each PO Q8H PRN #3 tab 01/31/22 [Rx] Follow up Appointment(s)/Referral(s): None,Stated [REFERRING] - 1-2 days Miki Shen MD [STAFF PHYSICIAN] - 2 Weeks Activity/Diet/Wound Care/Special Instructions: Patient is going to [facility] Follow-up with primary care provider on discharge Follow-up with orthopedics in 1-2 weeks Continue with conservative management and the sling to the upper extremity Continue with scheduled Tylenol and may use as needed [place] for severe pain Encourage oral intake and continue with ensure and live 3 times a day with meals/strawberry Discharge Disposition: TRANSFER TO SNF/ECF
[2022-01-31 16:05] VITALS: BP 133/71; PULSE 81; RESP 15; TEMP 97.6
== END 2022-01-31 16:43 | DRG 563 ==
LOC: EC 18:59 → 4SSUR 20:38
PROVIDERS: ADMIT Hospitalist; ATTEND Hospitalist
DX: S42.201A Unspecified fracture of upper end of right humerus, initial encounter for closed fracture (principal); E04.2 Nontoxic multinodular goiter; W19.XXXA Unspecified fall, initial encounter; M85.80 Other specified disorders of bone density and structure, unspecified site; I10 Essential (primary) hypertension; F03.90 Unspecified dementia, unspecified severity, without behavioral disturbance, psychotic disturbance, mood disturbance, and anxiety; E11.65 Type 2 diabetes mellitus with hyperglycemia; Z79.899 Other long term (current) drug therapy; Y92.009 Unspecified place in unspecified non-institutional (private) residence as the place of occurrence of the external cause
CPT/HCPCS: 36415; 70450; 72125; 80048; 82607; 82747; 83036; 84443; 85025; 87635; 93005; 96374; 96376; 99285